=== PATIENT | female | born 1955 | race Caucasian/White ===

== ENCOUNTER 2023-03-29 07:38 | Emergency (ER) | payer OTHER ==
[~2023-03-29] VITALS: Ht 170.2 cm; Wt 53.0 kg
[2023-03-29 08:00] VITALS: BP 147/83; PULSE 89; RESP 16; TEMP 98.3; O2SAT 98
== END 2023-03-29 12:00 | disposition left against medical advice (07) ==
LOC: ER 10:24
DX: M54.2 Cervicalgia (principal); M25.521 Pain in right elbow; M25.561 Pain in right knee; Z53.21 Procedure and treatment not carried out due to patient leaving prior to being seen by health care provider; W01.0XXA Fall on same level from slipping, tripping and stumbling without subsequent striking against object, initial encounter; Y93.89 Activity, other specified; Y92.89 Other specified places as the place of occurrence of the external cause; Y99.8 Other external cause status
CPT/HCPCS: 99283